=== PATIENT | female | born 1985 | race Caucasian/White ===

== ENCOUNTER → 2020-10-06 08:48 | Outpatient (CLI) | payer OTHER, SELFPAY ==
--- NOTE | 2020-10-06 08:51 | BI_ITS ---
MAMMOGRAPHY - BILATERAL DIAGNOSTIC REASON FOR EXAM: Female, 35 years old. Palpable lump in the upper lateral aspect of the right breast. PERTINENT HISTORY: Unknown. TECHNIQUE: Digital bilateral breast juan (3D mammographic acquisition) in the CC and MLO projections. 2-D mediolateral oblique (MLO) and craniocaudad (CC) views of both breasts were obtained. CAD: Full Field Digital Mammography with Computer Added Detection was performed. COMPARISON: None. Baseline examination. FINDINGS: Breast Composition: The breasts are extremely dense, which lowers the sensitivity of mammography. There are no dominant masses or suspicious calcifications. No other significant abnormalities are identified. BI/DIAG MAMM W/CAD, BILAT IMPRESSION: Negative diagnostic mammogram. With the patient''s history of a palpable lump in the right breast, correlation with ultrasound is recommended. ASSESSMENT CATEGORY: BIRADS Category 0: Incomplete. Need additional imaging evaluation. A letter regarding these results will be sent to the patient by the facility within 30 days. Approximately 10% of breast cancers are not detected by mammography. A normal mammogram should not delay biopsy of a clinically suspicious abnormality. Electronically Signed: Gabino John, at 10:44 EST , Service support ,
--- NOTE | 2020-10-06 08:51 | US_ITS ---
STUDY: ULTRASOUND BREAST - RIGHT REASON FOR EXAM: Female, 35 years old. Palpable lump in the right breast. TECHNIQUE: Axial and longitudinal images of the RIGHT breast were performed with a high resolution ultrasound transducer. # OF IMAGES: 9 COMPARISON: Comparison is made with prior mammogram done earlier in the day. FINDINGS: RIGHT Breast: There is a 5 mm x 5 mm x 2 mm well-defined lymph node just lateral to the nipple. There is also evidence of dilated subareolar ducts. US/Breast Limited Unilateral IMPRESSION: Dilated retroareolar ducts. Findings suggestive of a benign-appearing 0.5 cm x 0.5 cm x 0.2 cm lymph node lateral to the nipple. ASSESSMENT CATEGORY: BIRADS Category 2: Benign. A letter regarding these results will be sent to the patient by the facility within 30 days. Electronically Signed: Gabino John, at 11:30 EST , Service support ,
== END ==
PROVIDERS: PCP Family Medicine
DX: N63.10 Unspecified lump in the right breast, unspecified quadrant (principal)
CPT/HCPCS: 76642; 77062; 77066; G0279

== ENCOUNTER → 2021-05-14 | Outpatient (CLI) | payer OTHER, SELFPAY | END | disposition home or self-care (01) | LOC: LABSPEC 14:52 | PROVIDERS: PCP Family Medicine; Visit Provider Obstetrics & Gynecology | DX: R30.0 Dysuria (principal); N39.3 Stress incontinence (female) (male) | CPT/HCPCS: 81001; 87086 ==

== ENCOUNTER 2021-11-08 12:11 | Outpatient (CLI) | payer OTHER, SELFPAY | END 2021-11-08 23:59 | disposition short-term general hospital (02) | LOC: LABSPEC 12:11 | PROVIDERS: PCP Family Medicine; Visit Provider Obstetrics & Gynecology | DX: Z03.818 Encounter for observation for suspected exposure to other biological agents ruled out (principal) | CPT/HCPCS: 87635; U0003; U0005 ==

== ENCOUNTER 2021-11-15 12:04 | Day surgery (SDC) | payer OTHER, SELFPAY ==
[2021-11-08 12:38] LABS: Hematocrit 43.4 % (37-47); Hemoglobin 14.7 g/dL (12.0-15.0); Mean Corp Hgb Conc 33.9 g/dL (32-36); Mean Corpuscular Hgb 31.9 pg (27.0-32.0); Mean Corpuscular Volume 94.1 fL (81-99); Mean Platelet Vol. 8.5 fl (6.2-12.0); Platelet Count 281 K/mm3 (150-450); RBC Distribution Width CV 12.1 % (11.6-14.6); RBC Distribution Width SD 42.4 fl (35.1-43.9); Red Blood Count 4.61 M/mm3 (4.2-5.4); White Blood Count 5.4 K/mm3 (4.4-11.0)
[2021-11-15] MEDS: Lactated Ringers 1,000 ML 15 ML IV ×2 (12:20→16:01)
[2021-11-15 12:32] VITALS: BP 120/89; PULSE 69; RESP 16; TEMP 36.6; O2SAT 100; BMI 25.3
--- NOTE | 2021-11-15 12:58 | PCM.HP.BLA ---
History and Physical Date of Admission: 11/15/21 Surgical History and Physical Date: 11/15/2021 Name: SHELBY TREVINO Age: 36 Date of : 1985 Shelby Trevino, a 36 year old female 2 0 1 0 2, presents for Transvaginal tape, cystoscopy, possible anterior repair, possible posterior repair on November 15, 2021 -- She is scheduled for TVT,Cystoscopy,(possible anterior and posterior repair) on 11/15/21. Consents signed. MEDICATIONS HISTORY: Current medications prescribed by our practice are: 1. Diflucan 150 mg tablet, 1 PO weekly ALLERGIES: Benadryl, Low blood pressure, Percocet, Low blood pressure, Latex, Hives and/or rash, Morphine, Hives and/or rash, Menthol and Anaphylaxis Infections - Chicken pox Illnesses - Endometriosis and Scoliosis Hospitalizations - Childbirth and see surgery Review of Systems: GENERAL - Denies fever, or chills SKIN - Denies skin changes EYES - Denies visual changes EARS - Denies difficulty hearing NOSE - Denies nasal congestion or bleeding MOUTH - Denies sore throat or difficulty swallowing NECK - Denies pain or swelling RESPIRATORY - Denies shortness of breath or wheezing CARDIOVASCULAR - Denies palpitations or chest pain GASTROINTESTINAL - Denies nausea, vomiting, diarrhea, constipation GENITOURINARY - Denies dysuria, frequency of urination, incontinence of urine MUSCULOSKELETAL - Denies joint or muscle pain NEUROLOGICAL - Denies localized numbness or weakness PSYCHIATRIC - Denies depression or anxiety ENDOCRINE - Denies heat or cold intolerance, weight loss or gain HEMATO-IMMUNOLOGIC - Denies excessive bleeding with cuts SOCIAL HISTORY: Smoking - denies smoking Seat Belt Use - always Employer - Family [employer] 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 D and C's total of 8 ; - 1 SAB, rest for Endometriosis 2. [facility] RSO 2017 ; - PHYSICAL EXAM BP- 126/82 Sitting, Right arm, regular cuff Weight- 153.54025 lbs Height- 64 inch BMI:[id number] CONSTITUTIONAL - NAD, well nourished, and well developed SKIN - No rash, lesions, or ulcers HEENT - Normocephalic, PERRLA, EOMI NECK - No nodes, no nuchal rigidity and thyroid normal size and texture LYMPH NODES - Palpation of lymph nodes in neck and groins within normal limits ABDOMEN - Without hepatosplenomegaly, distention, masses, rebound, or guarding; normal bowel sounds; no hernias EXTREMITIES - No edema or calf tenderness NEUROLOGICAL - Cranial nerves II-XII grossly intact PSYCHIATRIC - A and O to time, place, person, mood and affect External Genital Vagina - non-tender without lesions Urethra/Urethral Meatus - non-tender, positive cough test and post void residual 50cc Bladder - Grade 2 cystocele Vagina - vaginal rubi are pink and moist without loss of rugae and no evidence of atrophy Cervix - surgically absent and grade 1 apical prolapse Uterus - Surgically absent Adnexa - clear without masses or tenderness ASSESSMENT/PLAN: 1. Stress Incontinence (female) (male) Patient with leaking of urination when laughing coughing sneezing or lifting. Declines urgency. Declines nocturia. Patient status post vaginal deliveries x2. Status post hysterectomy RSO 2016 for endometriosis. Urine culture negative. Postvoid residual today 50 cc. Educated patient on stress urinary incontinence including treatment with TVT and anterior repair, risk benefits alternatives. Discussed surgical risks including most common complications Educated patient on risk complications. Recovery time. All questions were answered patient and undecided at this time 2. Encounter For Other Preprocedural Examination Pt scheduled for TVT, cystoscopy, possible anterior, possible posterior repair for stress urinary incontinence and pelvic organ prolapse Educated patient on risk benefits alternatives of the procedure. Discussed risk for home-going Simms catheter and intermittent self cath along with bladder injury and urinary tract infection. Patient states understanding and wishes to proceed. All questions answered and consent signed. Patient on no medications. Patient declines pain medications including oxycodone. Understands painful recovery
[2021-11-15] MEDS: Cefotetan 2 GM in 0.9% NS 100 ML IV (15:11)
[2021-11-15] MEDS: Lidocaine 1% /Epi 1:100 (50ml) 50 ML VIAL (16:00)
[2021-11-15 16:23] VITALS: BP 120/89; BP 128/87; PULSE 86; RESP 16; TEMP 36.3; O2SAT 98
--- NOTE | 2021-11-15 16:26 | PCM.DC ---
Discharge Instructions Diet Discharge Diet: No restrictions Activity Discharge Activity: Return to Normal Activity, May Drive and May Shower May resume sexual activity in: 4-6 weeks Lifting Restrictions: No lifting over 25 pounds for 2 to 3 weeks Dressing / Incision Call your doctor if your incision/area has: Continuous Slow Oozing and Foul Smelling Discharge Call your doctor if you observe: Fever of 101 or Higher, Shortness of breath and Chest pain Follow Up Care Please Follow Up With: Arley Peguero MD When: follow up 2 weeks postoperatively Test Results: Test results from this visit will be discussed in further detail at your follow-up appointment, if applicable. Discharge Plan Admission Attending Provider: Arley Peguero Primary Care Provider: Gerald Lee Discharge Orders/Prescriptions Prescriptions: No Action Food Enzyme Tablet 400 unit PO DAILY RF: 0 omeprazole [Prilosec] 20 mg Capsule,Delayed Release(Dr/Ec) 20 mg PO DAILY RF: 0 vitamin B complex Tablet 1 tab PO DAILY RF: 0 vudemzxi-xjxm-gcxhlp-hyalur ac [Joint Support] 531-024-83-2 mg Capsule 3 cap PO DAILY RF: 0 Probiotic 10 billion cell Capsule 10,000 mmu cells PO BID RF: 0 Fibrocare 2 cap PO/SL BID RF: 0 fluconazole 150 mg tablet 150 mg PO QWEEK RF: 0
--- NOTE | 2021-11-15 16:27 | PCM.OPRPT ---
Report of Operation Date of Procedure: 11/15/21 Pre-Operative Diagnosis: Stress urinary incontinence Post-Operative Diagnosis: Stress urinary incontinence Surgery/Procedure Performed:: Transvaginal tape, cystoscopy Description of Surgical Findings:: Surgeon: Arley Peguero MD Anesthesia: General EBL: 50 cc Urine output: 300 cc IV fluids: 1150cc Complications: None Specimen: None Findings: Bladder and rectum well supported, negative for rectocele or cystocele. Post sling cystoscopy with no pathology noted including no signs of mesh or bladder perforation. Small amount of oozing at mesh placement site, Floseal placed and hemostatic. Consent: Patient was stress urinary incontinence elects for transvaginal tape and cystoscopy. Patient understands the risk of the procedure include but are not limited to visceral or vascular injury, prolonged hospitalization, blood loss and need for transfusion, reoperation, mesh complications, bladder perforation. Patient stated understanding and wished to proceed. All questions were answered and consent was signed. Procedure: Patient was brought back to the OR where general anesthesia was found to be adequate. 2 g of Ancef were given for infection prophylaxis. Patient was prepared and draped in a dorsal lithotomy position with yellowfin stirrups. Suprapubic incision valdez were made 2 cm bilateral to the midline. Simms catheter was inserted, and bladder was drained. 1% lidocaine was injected at the vaginal mucosa/periurethral fascia for [place] dissection and hemostasis. Sagittal incision was made in the vaginal mucosa 1 cm cephalad to the urethra, incision 1.5 cm in length. Using Allis clamps for retraction and Metzenbaum scissors the vaginal mucosa was dissected from the periurethral fascia to the retropubic space, this dissection was performed bilaterally. Good hemostasis was noted. Simms catheter stylette was placed and bladder was deviated toward patient's left. Meanwhile the right TVT exact mesh was loaded on trocar, trocar was guided under direct visualization lateral to the urethra then directly along the posterior portion of the pubic symphysis along the retropubic space toward the 2 cm suprapubic skin yvonne noted above. Trocar was perforated through skin at suprapubic skin yvonne. Again using Simms catheter stylette the bladder was deviated toward patient's right. Meanwhile the left TVT exact mesh was loaded on trocar, trocar was guided under direct visualization lateral to the urethra then directly along the posterior portion of the pubic symphysis along the retropubic space toward the 2 cm suprapubic skin yvonne noted above. Trocar was perforated through the skin at suprapubic skin yvonne. Simms catheter was removed. Cystoscopy was performed and above findings were noted. No signs of bladder perforation or mesh. Cystoscope was removed and Simms catheter was replaced. Bilateral trocar sheaths were pulled through skin incisions bilaterally. TVT sling was placed to appropriate tension. Trocar sheaths sheaths were cut and removed bilaterally. As noted above vaginal portion of sling with small amounts of oozing, Floseal was placed. Good hemostasis was noted. Suprapubic mesh was cut to skin level and incisions were closed with skin glue, good hemostasis was noted. Vaginal incision was closed in a continuous running locked fashion with 0 Vicryl. Good hemostasis was noted. All counts were correct x2. Patient tolerated the procedure well and was brought to recovery in stable condition.
[2021-11-15 16:30] VITALS: BP 120/89; BP 130/89; PULSE 87; RESP 16; O2SAT 97
[2021-11-15 16:45] VITALS: BP 120/89; BP 128/90; PULSE 66; RESP 16; O2SAT 98
[2021-11-15] MEDS: Ketorolac 30 MG/ML Syringe IV (16:47)
[2021-11-15 17:00] VITALS: BP 120/89; BP 124/82; PULSE 57; RESP 16; TEMP 36.3; O2SAT 99
--- NOTE | 2021-11-15 18:10 | SUR.PHASEII ---
retrofilled bladder with 300cc sterile water. Within a few minutes pt voided 300cc pink urine. notified Dr Peguero. States patient can be discharged home with no barreto.
[2021-11-15 18:23] VITALS: BP 120/89; BP 132/84; PULSE 59; RESP 16; TEMP 36.5; O2SAT 100
== END 2021-11-15 23:59 | disposition home or self-care (01) ==
LOC: SDC 12:06 → AC 12:06
PROVIDERS: PCP Family Medicine; Referring Provider Obstetrics & Gynecology; Visit Provider Obstetrics & Gynecology
PROC: (CPT 57260; principal; 2021-11-15 13:25)
DX: N39.3 Stress incontinence (female) (male) (principal); M79.7 Fibromyalgia; M19.90 Unspecified osteoarthritis, unspecified site; Z90.710 Acquired absence of both cervix and uterus
CPT/HCPCS: 57288; 00942; 36415; 85027; 86850; 86900; 86901; J7120; J2405

== ENCOUNTER 2021-11-21 12:07 | Outpatient (CLI) | payer OTHER, SELFPAY | END 2021-11-21 23:59 | disposition short-term general hospital (02) | LOC: LABSPEC 12:09 | PROVIDERS: PCP Family Medicine; Visit Provider Dermatology | DX: L72.0 Epidermal cyst (principal) | CPT/HCPCS: 87070; 87205 ==

== ENCOUNTER → 2022-02-12 | Outpatient (CLI) | payer OTHER, SELFPAY | END | disposition home or self-care (01) | LOC: LABSPEC 12:23 | PROVIDERS: PCP Family Medicine; Referring Provider Dermatology; Visit Provider Dermatology | DX: T81.40XA Infection following a procedure, unspecified, initial encounter (principal); L20.84 Intrinsic (allergic) eczema | CPT/HCPCS: 87070; 87077; 87205 ==

== ENCOUNTER → 2023-02-04 | Outpatient (CLI) | payer OTHER, SELFPAY ==
--- NOTE | 2023-02-04 08:45 | BI_ITS ---
MAMMOGRAPHY - BILATERAL SCREENING 3-D TOMOSYNTHESIS REASON FOR EXAM: Female, 37 years old. Routine screening PERTINENT HISTORY: No significant family history. TECHNIQUE: 2-D mammograms and 3-D Tomosynthesis of the breast (s) were performed. CAD was performed. COMPARISON: 10/06/2020 FINDINGS: The breast composition is extremely dense glandular tissue Scattered benign calcifications are seen. No dense spiculated masses or suspicious microcalcifications are identified. No architectural distortion is identified. There is no skin thickening or retraction. There is a more conspicuous asymmetry in the central inferior left breast marked by CAD which needs further evaluation with spot compression views and ultrasound. Right breast is stable and unchanged. BI/SCRN MAMM (CAD)W/JUDITH BILAT IMPRESSION: More conspicuous asymmetry in the left breast needs further evaluation with spot compression views and ultrasound. ASSESSMENT CATEGORY: BIRADS Category 0: Incomplete. Need additional imaging evaluation as above. A letter regarding these results will be sent to the patient by the facility within 30 days. FOLLOW UP RECOMMENDATION: Additional imaging recommended as above. (E) Approximately 10% of breast cancers are not detected by mammography. A normal mammogram should not delay biopsy of a clinically suspicious abnormality. Electronically Signed: Abebe Salas MD at 9:37 EDT ,
== END | disposition home or self-care (01) ==
LOC: OPBI 08:44
PROVIDERS: PCP Family Medicine; Referring Provider Obstetrics & Gynecology; Visit Provider Obstetrics & Gynecology
DX: Z12.31 Encounter for screening mammogram for malignant neoplasm of breast (principal)
CPT/HCPCS: 77063; 77067

== ENCOUNTER → 2023-02-10 | Outpatient (CLI) | payer OTHER, SELFPAY ==
--- NOTE | 2023-02-10 09:37 | US_ITS ---
STUDY: ULTRASOUND BREAST - LEFT REASON FOR EXAM: Female, 37 years old. Abnormal screening mammogram. TECHNIQUE: Axial and longitudinal images of the LEFT breast were performed with a high resolution ultrasound transducer. # OF IMAGES: 56 COMPARISON: Comparison is made with prior mammogram dated February 04, 2023 and February 10, 2023. FINDINGS: LEFT Breast: The 6:00 to 10:00 regions of the left breast were examined with ultrasound. No sonographic abnormality is seen. US/Breast Limited Unilateral IMPRESSION: No sonographic abnormality is seen. ASSESSMENT CATEGORY: BIRADS Category 1: Negative. A letter regarding these results will be sent to the patient by the facility within 30 days. Electronically Signed: Gabino John MD at 12:32 EDT ,
--- NOTE | 2023-02-10 09:37 | BI_ITS ---
MAMMOGRAPHY - UNILATERAL DIAGNOSTIC: LEFT BREAST REASON FOR EXAM: Female, 37 years old. Abnormal screening mammogram. PERTINENT HISTORY: Non-contributory. TECHNIQUE: Compression spot views of the left breast in the mediolateral oblique and craniocaudad projections were obtained. CAD: Full Field Digital Mammography with Computer Added Detection was performed. COMPARISON: Comparison is made with prior mammogram dated February 04, 2023. FINDINGS: Breast Composition: The breasts are extremely dense, which lowers the sensitivity of mammography. There are no dominant masses or suspicious calcifications. No other significant abnormalities are identified. BI/DIAG MAMM W/CAD, UNILAT IMPRESSION: Negative unilateral diagnostic mammogram. Correlation with a targeted ultrasound of the retroareolar region is recommended for further evaluation. ASSESSMENT CATEGORY: BIRADS Category 0: Incomplete. Need additional imaging evaluation. A letter regarding these results will be sent to the patient by the facility within 30 days. Approximately 10% of breast cancers are not detected by mammography. A normal mammogram should not delay biopsy of a clinically suspicious abnormality. Electronically Signed: Gabino John MD at 11:08 EDT ,
== END | disposition home or self-care (01) ==
PROVIDERS: PCP Family Medicine; Referring Provider Obstetrics & Gynecology; Visit Provider Obstetrics & Gynecology
DX: R92.8 Other abnormal and inconclusive findings on diagnostic imaging of breast (principal)
CPT/HCPCS: 76642; 77065

== ENCOUNTER 2023-10-14 09:30 | Outpatient (RCR) | payer OTHER, SELFPAY ==
--- NOTE | 2023-08-11 08:56 | HP.PTEVAL_ITS ---
Patient's Visit Information Visit Information Visit Information: VERONICA VENEGAS is a 38 year old F referred to Physical Therapy by ROSALIE MEDINA with a diagnosis of L RTC repair 06/20/23. Date of Evaluation: 08/11/23 Physical Therapist: Joseph Winston DPT Visit Plan Frequency: 2x /Week Duration: 6 Weeks Plan: Start with PROM and AROM exercises. Add in joint mobs multidirectional. No strengthening at this point in time. Progress HEP as tolerated. Subjective Subjective: Pt. is here today for her initial evaluation with diagnosis of R RTC repair 06/20/23. Pt. arrives with reports of doing well. Pt. reports still being sore, but not too bad. Pt. denies N/T. Pt. has been weaning from brace with good tolerance. Sleeping well. She has been doing some light pendulums at home. Pt. works from home, but has been off for a bit of time. She does do some farming as well. Pt. is hopeful to increase her L shoulder ROM, decrease her pain and get back to all recreational activities without limitations. Current scripts allows for passive and AROM only, No strenthening. Pain L shoulder: Pain Intensity (Out of 10): 1 Pain Intensity Range: 0 and 3 Objective Objective: POSTURE: Pt. has decent posture in stance. Normal and equal shoulder heights. Pt. slight guarded posture of L shoulder. PALPATION: pt. has well healing normal port holes. Pt. has slight anterior shoulder tenderness. NEURO: PT. has normal sensation of BUEs. ROM: L shoulder PROM: flexion 160deg, abd 155deg, ER at side 30deg, IR at 30deg of abd 40deg. AROM: L shoulder: flexion 90deg, abd 85deg, DNT functional ER/IR. MMT: RUE 5/5. LUE DNT Balance/Special Test Scores Quick DASH Score: 29.5450 Goals Goal 1:: LTG: Pt. to be I with HEP for L shoulder PROM and AROM. Goal Time Frame: 4-6 Weeks Goal 2:: LTG: PT. to have full symmetrical PROM of L shoulder compared to R. Goal Time Frame: 2-4 Weeks Goal 3:: LTG: Pt. to have full symmetrical AROM of L shoulder compared to R side. Goal Time Frame: 4-6 Weeks Goal 4:: LTG: Pt. to sleep throughout the night without limitations. Goal Time Frame: 2-4 Weeks Goal 5:: STG: Pt. to have no pain in L shoulder at rest. Goal Time Frame: 2 Weeks Rehabilitation Potential Physical Therapy Diagnosis: Pt. has signs and symptoms consistent with L RTC repair on 06/20/23. Pt. is overall doing very well. She has good ROM for time frame. Pt. has signs of hypomobility, weakness, increased pain and decreased functional use of LUE. Pt. would benefit from PT to address above limitations. Rehabilitation Potential: Excellent Anticipated Interventions Patient/Client Instruction: Educate patient on: Condition, Plan of Care, Risk Factors and Benefits of Fitness Program For the Purpose of:: To improve decision making, To facilitate caregiver knowledge, To improve self management, To prevent re-injury and To improve ability to perform tasks related to life management Therapeutic Exercise to Include: Strength training, Power training, Passive ROM and Active ROM For the Purpose of:: To decrease pain, To increase ROM, To improve nutrient delivery to tissue, To increase oxygenation perfusion, To improve muscle performance and motor function, To improve ability to perform ADL's, To decrease soft tissue restriction and To increase flexibility/ROM Manual Therapy Techniques to Include: Mobilization and Passive ROM For the Purpose of:: To decrease pain, To decrease swelling/inflammation, To increase ROM, To decrease soft tissue restriction and To increase flexibility/ROM TENS: Yes Cryotherapy (ice pack, ice massage): Yes Thermo therapy (hot pack): Yes For the Purpose of:: To decrease pain, To decrease swelling/inflammation and To increase ROM Text: Thank you for the opportunity to evaluate your patient. For Medicare and Medicare HMO plans, please review the plan of care and approve it. It will need to be FAXED BACK to us at [phone] for Medicare purposes. For Medicare only, by signing this I certify the plan of care. Please let me know if there are questions or concerns regarding this plan of care. Physician Signature: Date:
--- NOTE | 2023-09-02 13:46 | HP.PTREVAL ---
Re-Evaluation Intro: ROSALIE MEDINA, It has been my pleasure to treat VERONICA VENEGAS over the last 7 visits for L RTC repair 06/20/23. Please see the progress note below for an update on the physical therapy plan of care! Subjective Subjective: Pt. reports seeing chiro and L shoulder blade has improved a lot. Objective Objective/Function: Pt. has great AROM and PROM of L shoulder. Pt. has slight tightness with ER at 90deg of abd. Pt. has good AROM and functional ER/IR motions. At this point in time she is doing well. We are not able to strengthen currently until following up with physician. Plan Plan Plan: Start with P/AA/AROM exercises. Add in joint mobs multidirectional. No strengthening at this point in time. Progress HEP as tolerated. Pt. will be on hold until following up with physician. Her ROM is great and is to continue to work on her ROM and progress to strengthening once allowed to progress. Balance/Gait/Functional tests Balance/Special Test Scores Quick DASH Score: 29.5450 Goals Goals Goal 1:: LTG: Pt. to be I with HEP for L shoulder PROM and AROM. Goal Time Frame: 4-6 Weeks Goal Progress: Progressing Goal 2:: LTG: PT. to have full symmetrical PROM of L shoulder compared to R. Goal Time Frame: 2-4 Weeks Goal Progress: Goal Met Goal 3:: LTG: Pt. to have full symmetrical AROM of L shoulder compared to R side. Goal Time Frame: 4-6 Weeks Goal Progress: Goal Met Goal 4:: LTG: Pt. to sleep throughout the night without limitations. Goal Time Frame: 2-4 Weeks Goal Progress: Progressing Goal 5:: STG: Pt. to have no pain in L shoulder at rest. Goal Time Frame: 2 Weeks Goal Progress: Goal Met Anticipated Interventions Anticipated Interventions Patient/Client Instruction: Educate patient on: Condition, Plan of Care, Risk Factors and Benefits of Fitness Program For the Purpose of:: To improve decision making, To facilitate caregiver knowledge, To improve self management, To prevent re-injury and To improve ability to perform tasks related to life management Therapeutic Exercise to Include: Strength training, Power training, Passive ROM and Active ROM For the Purpose of:: To decrease pain, To increase ROM, To improve nutrient delivery to tissue, To increase oxygenation perfusion, To improve muscle performance and motor function, To improve ability to perform ADL's, To decrease soft tissue restriction and To increase flexibility/ROM Manual Therapy Techniques to Include: Mobilization and Passive ROM For the Purpose of:: To decrease pain, To decrease swelling/inflammation, To increase ROM, To decrease soft tissue restriction and To increase flexibility/ROM TENS: Yes Cryotherapy (ice pack, ice massage): Yes Thermo therapy (hot pack): Yes For the Purpose of:: To decrease pain, To decrease swelling/inflammation and To increase ROM Re-Evaluation Ending Re-evaluation ending: Please do not hesitate to contact me at [phone] by phone or if you have questions or concerns regarding this new plan of care! Sincerely, GARO PinonT
--- NOTE | 2023-10-14 13:53 | HP.PTDCSUM ---
Discharge Summary D/C summary: It has been my pleasure to treat VERONICA VENEGAS referred by ROSALIE MEDINA, with the diagnosis of L RTC repair 06/20/23 for a total of 10 visit(s). Discharge Date: 10/14/23 Please see the following information for a summary of their discharge status. Subjective Subjective: Pt. reports overall doing well. Pt. reports having no more pain and is doing much better. No longer having any HAs. HEP compliant. Pt. to see physician in 2 weeks. Pain L shoulder: Pain Intensity (Out of 10): 0 Overall Improvement % Improvement: 100 Objective Objective/Function: Pt. is overall doing well. Pt. has great ROM and good strength. Pt. is no longer having any pain or issues. I want her to continue to work on strengthening and strengthening at home. Pt. consents. She is to follow back up with physician in a few weeks. Goals Goal 1:: LTG: Pt. to be I with HEP for L shoulder PROM and AROM. Goal Progress: Goal Met Goal 2:: LTG: PT. to have full symmetrical PROM of L shoulder compared to R. Goal Progress: Goal Met Goal 3:: LTG: Pt. to have full symmetrical AROM of L shoulder compared to R side. Goal Progress: Goal Met Goal 4:: LTG: Pt. to sleep throughout the night without limitations. Goal Progress: Goal Met Goal 5:: STG: Pt. to have no pain in L shoulder at rest. Goal Progress: Goal Met Plan Plan: pt. to be DC from PT at this point in time. D/C Information Discharge Comments: Pt. to be DC from PT at this point in time. pt. is overall doing well. I am very pleased with her ROM, she is to continue to stretch into end range as tolerated and continue with her strengthening exercises as she has been doing. d/c sentence: If there are questions or concerns regarding this patient's physical therapy, please feel free to call me at [phone]. Thank you for the referral of this patient. Sincerely, Joseph Villalba Sipos, DPT Balance/Gait/Functional tests Balance/Special Test Scores Quick DASH Score: 0 Improvement % Improvement: 100
== END 2023-10-14 19:00 | disposition home or self-care (01) ==
LOC: PT 09:30
PROVIDERS: PCP Family Medicine
DX: M75.32 Calcific tendinitis of left shoulder (principal); M75.42 Impingement syndrome of left shoulder
CPT/HCPCS: 97110; 97161; 97164

== ENCOUNTER → 2024-03-05 | Outpatient (CLI) | payer OTHER, SELFPAY ==
[2024-03-05 12:49] LABS: Absolute Lymphocyte Count 1.74 X10^3/uL (0.83-4.51); Absolute Neutrophil Count 2.4 X10^3/uL (2.0-7.7); Basophil# 0.04 X10^3/uL; Basophil% 0.9 % (0-1); Eosinophil# 0.07 X10^3/uL; Eosinophils% 1.5 % (0-5); Hemoglobin 14.4 g/dL (12.0-15.0); Lymphocyte # 1.74 X10^3/ul (0.83-4.51); Lymphocyte % 37.1 % (19-41); Mean Corp Hgb Conc 32.7 g/dL (32-36); Mean Corpuscular Hgb 30.7 pg (27.0-32.0); Mean Corpuscular Volume 93.8 fL (81-99); Mean Platelet Vol. 9.2 fl (6.2-12.0); Monocyte# 0.42 X10^3/uL; NRBC Flagged by Analyzer 0 % (0-5); Neutrophil % 51.1 % (47-70); Platelet Count 304 K/mm3 (150-450); RBC Distribution Width SD 44.6 fl (35.1-43.9); Red Blood Count 4.69 M/mm3 (4.2-5.4); White Blood Count 4.7 K/mm3 (4.4-11.0)
[2024-03-05 13:27] LABS: ALB/GLOB Ratio 1.2 RATIO (0.9-2.4); AST(SGOT) 18 U/L (15-37); Alanine Aminotransfer ALT/SGPT 30 U/L (13-56); Alkaline Phosphatase 43 U/L (45-117); Anion Gap 7 (5-15); BUN 8 mg/dL (7-18); BUN/Creat Ratio 13.2 RATIO (10-20); Chloride 111 mmol/L (98-107); Cholesterol 239 mg/dL (200); Creatinine, Serum 0.61 mg/dL (0.55-1.02); EST Glomerular Filtration Rate 116 mL/min (>60); Est Glom Filt Rate - Afr Amer 140 mL/min (>60); Globulin 3.4 g/dL (2.2-4.2); Glucose 88 mg/dL (74-106); High Density Lipoprotein 41 mg/dL; Potassium 3.6 mmol/L (3.5-5.1); Protein, Total 7.4 g/dL (6.4-8.2); Sodium Level 141 mmol/L (136-145); Triglycerides 284 mg/dL; Very Low Density Lipoprotein 57 mg/dL (5-40)
== END | disposition home or self-care (01) ==
LOC: BFHLAB 10:36
PROVIDERS: PCP Family Medicine; Referring Provider Family Medicine; Visit Provider Family Medicine
DX: Z00.00 Encounter for general adult medical examination without abnormal findings (principal); E78.5 Hyperlipidemia, unspecified; K21.9 Gastro-esophageal reflux disease without esophagitis
CPT/HCPCS: 36415; 80053; 80061; 85025